=== PATIENT | male | born 1960 | race Caucasian/White ===

== ENCOUNTER 2018-02-22 18:12 | Emergency (ER) | payer OTHER ==
[~2018-02-22] VITALS: Ht 177.8 cm; Wt 95.3 kg
[2018-02-22] MEDS ORDERED: Surgicel 4in x 8in TOPIC ONE (18:35)
[2018-02-22] MEDS ORDERED: Ampicillin/Sulbactam Sod 3 GM in NS 110 ML IVPB ONE (18:45)
[2018-02-22] MEDS ORDERED: Norco 5mg/325mg tab ORAL ONE (18:45)
[2018-02-22] MEDS ORDERED: Augmentin 875mg Tab ORAL ONE (20:00)
[2018-02-22] MEDS ORDERED: BACTRIM DS TAB1 EAC1 ORAL (20:13)
[2018-02-22] MEDS ORDERED: AUGMENTIN 875-1 EAC1 ORAL (20:13)
[2018-02-22 20:30] VITALS: BP 133/64
[2018-02-22 20:40] VITALS: BP 133/64
--- NOTE | 2018-02-22 21:34 | Emergency Room Report ---
History of Present Illness General Chief Complaint: Pain Source: Medical Record Present Illness HPI The patient is a 57-year-old male who presented after increased pain to his right lower extremity. Patient had recent sutures placed which she reports becoming infected. Patient had been recently seen and treated for infection and had sutures removed. He denies any medication allergies.The patient denies injection drug use. Reports having moderate pain to his right leg. Allergies: Coded Allergies: IBUPROFEN (Verified Allergy, Unknown, 02/22/18) Patient History Past Medical History: see triage record Reviewed Nursing Documentation: PMH: Agreed; PSxH: Agreed Review of Systems All Other Systems: negative except mentioned in HPI Physical Exam Vital Signs Date Time Temp Pulse Resp B/P (MAP) Pulse Ox O2 Delivery O2 Flow Rate FiO2 02/22/18 18:09 98.1 78 17 133/64 100 98.1 General Appearance: well appearing, no apparent distress, alert, GCS 15, Chronically Ill Head: normocephalic, atraumatic ENT: hearing grossly normal, normal voice Neck: full range of motion, supple Respiratory: no respiratory distress, speaking full sentences Musculoskeletal: swelling - right thigh lesion, erythema Neurologic: normal gait Psychiatric: mood/affect normal Skin: other - large area ulceration Medical Decision Making Diagnostic Impression: Primary Impression: Cellulitis of leg, right ER Course Patient is a 57-year-old male who presented for increased right leg pain. Differential diagnosis included but was not limited to fracture, contusion, DVT, , vascular insufficiency, aortic aneurysm, cellulitis. The patient presented evidence of infection. The patient was offered admission for IV antibiotics and he stated he did not want to be admitted to the hospital. The patient shows no evidence of abscesses this time. Patient's dressings are changed. He is given prescription for Augmentin as well as Bactrim. The patient is advised to have this wound rechecked in one to 2 days. Patient is to return if he began having increased fever worsening pain or other concerns. Last Vital Signs Date Time Temp Pulse Resp B/P (MAP) Pulse Ox O2 Delivery O2 Flow Rate FiO2 02/22/18 18:09 98.1 78 17 133/64 100 98.1 Status: improved Disposition: HOME, SELF-CARE Condition: Stable Scripts Trimethoprim/Sulfamethoxazole 160/800* (BACTRIM DS TABLET*) 1 Each Tablet 1 TAB ORAL TWICE A DAY, #14 TAB Prov: Kalin Oleary 02/22/18 Amoxicillin/Potassium Clav 875-125* (AUGMENTIN 875-125 TABLET*) 1 Each Tablet 1 TAB ORAL TWICE A DAY, #14 TAB Prov: Kalin Oleary 02/22/18 Patient Instructions: Cellulitis Kalin Oleary Feb 22, 2018 21:34
--- NOTE | 2018-02-23 10:54 | Diagnostic Imaging Report ---
Indication: Dyspnea Comparison: None A single view chest radiograph was obtained. Findings: Cardiomediastinal appearance is within normal limits for age. Pulmonary vascularity is appropriate. The diaphragmatic contour is smooth and costophrenic angles are sharp. No pleural effusions are identified. The bones are unremarkable. Impression: No acute findings
--- NOTE | 2018-02-23 16:34 | Cardiology Report ---
APPROVED REPORT EKG Measurement Heart [id number] VT [id number] Normal sinus rhythm Normal ECG
== END 2018-02-22 20:35 | disposition home or self-care (01) ==
LOC: EDBD 18:12 → EMR 20:33
DX: L03.115 Cellulitis of right lower limb (principal); Z88.6 Allergy status to analgesic agent
CPT/HCPCS: 71045; 93005; 99284